=== PATIENT | male | born 1965 | race Caucasian/White ===

== ENCOUNTER 2017-08-28 11:39 | Emergency (ER) | payer SELFPAY ==
[~2017-08-28] VITALS: Ht 182.9 cm; Wt 61.5 kg
[~2017-08-28 11:39] MED LIST: CLIN1CAP6 PO; OXYC1SOL5 PO
[2017-08-28 11:44] VITALS: BP 157/85; PULSE 73; RESP 18; TEMP 98.1; O2SAT 97
[2017-08-28] MEDS ORDERED: MAGICADU2 SWISH-SWAL (12:26)
[2017-08-28] MEDS ORDERED: DICL75TA PO (12:26)
[2017-08-28] MEDS ORDERED: AMOX500T PO (12:26)
--- NOTE | 2017-08-28 12:29 | PD ---
HPI Chief Complaint: Oral / Dental Pain or Problem Time Seen by Provider: 12:16 Travel History International Travel<30 days: No Contact w/Intl Traveler<30days: No Traveled to known affect area: No History of Present Illness HPI 51-year-old male that presents to the ED for evaluation of the upper jaw pain. Patient has had this for about one day. Per patient he had some swelling and pain yesterday but today, more severe. Most as well as the left upper jaw. States having but the patient and she only has 1 tooth left on that side of the jaw. He has no dentist at this time. Per patient the pain is 8 out of 10. Denies any urinary or bowel movement issues. No fevers chills or sweats. No injuries that he can think of. History of MRSA. PFSH Past Medical History Cancer: No Cardiovascular Problems: Yes (STENT) High Cholesterol: Yes Diabetes: No Endocrine: No Genitourinary: No Immune Disorder: No Musculoskeletal: Yes Neurologic: No Psychiatric: No Reproductive: No Respiratory: No Myocardial Infarction: Yes Past Surgical History Body Medical Devices: Stent Cardiac Surgery: Yes (Stent ) Social History Alcohol Use: Yes Tobacco Use: Yes Substance Use: No Allergies-Medications (Allergen,Severity, Reaction): Coded Allergies: *MDRO Multi-Drug Resistant Organism (Verified Adverse Reaction, Unknown, ) MRSA finger wound 08/2015 Reported Meds & Prescriptions Reported Meds & Active Scripts Active Oxycodone/Acetaminophen 5 mg/325 mg 5 mg/325 mg Tab 1 Tab PO Q6HR PRN Clindamycin Hcl (Clindamycin HCl) 300 Mg Cap 300 Mg PO Q8HR Review of Systems Except as stated in HPI: all other systems reviewed are Neg Physical Exam Narrative GENERAL: SKIN: Warm and dry. HEAD: Atraumatic. Normocephalic. EYES: Pupils equal and round. No scleral icterus. No injection or drainage. ENT: No nasal bleeding or discharge. Mucous membranes pink and moist. Tongue is midline. No uvula deviation. Dental: Patient has no dentition noted throughout. Patient has only one tooth that has a big cavity to it on the left upper jaw. Swelling and erythema noted in that area. No obvious abscesses noted however. Patient does have swelling and erythema noted on the left upper cheek. NECK: Trachea midline. No JVD. CARDIOVASCULAR: Regular rate and rhythm. RESPIRATORY: No accessory muscle use. Clear to auscultation. Breath sounds equal bilaterally. GASTROINTESTINAL: Abdomen soft, non-tender, nondistended. Hepatic and splenic margins not palpable. MUSCULOSKELETAL: Extremities without clubbing, cyanosis, or edema. No obvious deformities. NEUROLOGICAL: Awake and alert. No obvious cranial nerve deficits. Motor grossly within normal limits. Five out of 5 muscle strength in the arms and legs. Normal speech. PSYCHIATRIC: Appropriate mood and affect; insight and judgment normal. Data Data Last Documented VS Vital Signs Date Time Temp Pulse Resp B/P (MAP) Pulse Ox O2 Delivery O2 Flow Rate FiO2 08/28/17 11:44 98.1 73 18 157/85 (109) 97 Orders Orders Acetamin-Hydrocod 325-5 Mg ([place] 5-325 (08/28/17 12:30) Ed Discharge Order (08/28/17 12:25) [facility] Medical Decision Making Medical Screen Exam Complete: Yes Emergency Medical Condition: Yes Medical Record Reviewed: Yes Differential Diagnosis Dental infection versus dental abscess versus dentalgia Narrative Course 51-year-old male presents to the ED for evaluation of dental pain. Patient was properly examined and was found to have signs and symptoms consistent appears to be dental infection. Patient with for this. Lortab by mouth here is given amoxicillin prescription, diclofenac sodium and Magic mouthwash. Told to follow with dentist. See ED if worsening symptoms. Diagnosis Primary Impression: Dental infection Patient Instructions: General Instructions, Narcotic given in the ED Additional Instructions: Take medications as prescribed. Follow-up with dentist See ED for any worsening symptoms. Do not drink or drive while taking pain medication. Apply ice or heat as needed for pain Med/Other Pt SpecificInfo: Prescription(s) given Scripts Diclofenac Sodium DR (Diclofenac Sodium DR) 75 Mg Tabdr 75 MG PO BID Y for PAIN SCALE 1 TO 10, #20 TAB 0 Refills Prov: Daisy Rose MD 08/28/17 Kkzhwwat-Mdkoyykymtncfxa-Wtalugmbs Liq (Magic Mouthwash Adult Liq) 120 Ml Susp 5 ML SWISH-SWAL ACHS for Mouth sores, #120 ML 0 Refills Each 5mL contains: Nystatin 200,000units, Diphenhydramine 4.25mg, Viscous Lidocaine 10mg, Polanco syrup 0.8 mL Prov: Daisy Rose MD 08/28/17 Amoxicillin (Amoxicillin) 500 Mg Tab 500 MG PO TID for Infection for 10 Days, TAB 0 Refills Prov: Daisy Rose MD 08/28/17 Disposition: 01 DISCHARGE HOME Condition: Stable Vladimir Higgins Aug 28, 2017 12:29
[2017-08-28] MEDS ORDERED: ACETAMINOPHEN/HYDROcodone 325 MG/5 MG TAB PO ONE (12:30)
== END 2017-08-28 13:15 | disposition home or self-care (01) ==
LOC: PHEFT 11:39
DX: K04.7 Periapical abscess without sinus (principal); I25.2 Old myocardial infarction; Z72.0 Tobacco use; Z95.5 Presence of coronary angioplasty implant and graft
CPT/HCPCS: 99283